=== PATIENT | female | born 1940 | race Caucasian/White ===

== ENCOUNTER 2016-06-17 15:37 | Emergency (ER) | payer MEDICAID ==
[~2016-06-17] VITALS: Ht 170.2 cm; Wt 68.0 kg
[~2016-06-17 15:37] MED LIST: ARMO60TA PO; B-650TAB PO; CALC250T PO; CYAN1000P IM; NIAC100T2 PO; OMEP20TA PO; PRIN10TA PO; VITA100036 PO
[2016-06-17 15:41] VITALS: BP 155/74; PULSE 86; RESP 24; TEMP 98.6; O2SAT 99
--- NOTE | 2016-06-17 15:51 | PD ---
Physical Exam Time Seen by Provider: 15:47 Narrative 75yo F c/o not being able to eat x 1 weeks. Trouble swallowing. RUQ abd pain. Can swallow fluid without regurgitation. Reports nausea w/o vomiting. Denies fever. VSS Seen in triage, awaiting bed placement. Data Data Last Documented VS Vital Signs Date Time Temp Pulse Resp B/P Pulse Ox O2 Delivery O2 Flow Rate FiO2 06/17/16 15:41 98.6 86 24 155/74 99 Room Air MDM Supervised Visit with MYRA: Alma Sepulveda Jun 17, 2016 15:51
== END 2016-06-17 17:57 | disposition left against medical advice (07) ==
LOC: NED 15:37
DX: R11.2 Nausea with vomiting, unspecified (principal); Z53.21 Procedure and treatment not carried out due to patient leaving prior to being seen by health care provider
CPT/HCPCS: 99283

== ENCOUNTER 2016-06-22 13:47 | Emergency (ER) | payer MEDICAID ==
[2016-06-22 13:53] VITALS: BP 204/89; PULSE 72; RESP 24; TEMP 98.3; O2SAT 100
--- NOTE | 2016-06-22 14:15 | PD ---
Physical Exam Time Seen by Provider: 14:09 Narrative 75 year old female presents to ED for evaluation of decreased appetite, bloating , and discomfort for almost two weeks. She was here last week, but left while waiting in triage for a medical bed. She states since yesterday she has been unable to eat without vomiting and the discomfort and pressure has "gotten worse between her esophagus and stomach." Pt has history of hiatal hernia. BM has been harder today. Mild burning with urination. Has been chilled without fever. Pt has history of HTN and gerd. Data Data Last Documented VS Vital Signs Date Time Temp Pulse Resp B/P Pulse Ox O2 Delivery O2 Flow Rate FiO2 06/22/16 13:53 98.3 72 24 204/89 100 MDM Medical Record Reviewed: Yes Supervised Visit with MYRA: No Narrative Course 75 year old presents to ED for evaluation. Appears without distress. She is hypertensive, but otherwise VSS. Condition: Stable Milly Rivera Jun 22, 2016 14:15
[2016-06-22] MEDS ORDERED: SODIUM CHLOR 0.9% 1000 ML INJ 1,000 ML IV SCH (15:24)
--- NOTE | 2016-06-22 15:27 | PD ---
HPI Chief Complaint: Abdominal Pain Time Seen by Provider: 15:27 Travel History International Travel<30 days: No Contact w/Intl Traveler<30days: No Traveled to known affect area: No History of Present Illness HPI 75-year-old female with a history of hypertension, hypothyroidism, hiatal hernia , GERD presents to the emergency department for evaluation of epigastric abdominal discomfort for 1.5 weeks. Patient states that she has distention and bloating in the epigastric region that has been constant for the past week. States that the symptoms are made worse with eating. Denies any alleviating factors. States that she is unable to eat because his symptoms have been worsening. She has mild nausea without vomiting. Describes the discomfort as pressure between her esophagus and her stomach, feels as though she has an obstruction. Denies fever, chills, chest pain, shortness of breath, diarrhea, constipation, dysuria. Denies any prior abdominal surgeries. States that she had a history of H pylori and esophageal strictures in the past. PCP in [place]. No other complaints. PFSH Past Medical History Cancer: No Cardiovascular Problems: Yes (htn; interior ischemia) Diabetes: No Diminished Hearing: No Diverticulitis: Yes Endocrine: Yes Genitourinary: No Hepatitis: No Hiatal Hernia: Yes Hypertension: Yes Musculoskeletal: Yes (ARTHRITIS) Neurologic: No Psychiatric: No Reproductive: No Respiratory: No Immunizations Current: No Thyroid Disease: Yes (HYPOTHYROID) Menopausal: Yes : 1 Para: 0 Miscarriage: 0 : 1 Tubal Ligation: Yes Past Surgical History Abdominal Surgery: Yes (LAPAROSCOPIC TUBAL LIGATION) Body Medical Devices: N/A Cardiac Surgery: No Ear Surgery: No Endocrine Surgery: No Eye Surgery: Yes (TEE CATARACT SX) Genitourinary Surgery: No Gynecologic Surgery: Yes (TUBAL LIGATION) Joint Replacement: No Oral Surgery: Yes (T&A AGE 10) Pacemaker: No Thoracic Surgery: Yes (LEFT BREAST BROWN SPOT REMOVED 12/13/13- BENIGN) Tonsillectomy: Yes Other Surgery: Yes (removsl cyst to both breast ;ENDO/COLONOSCOPY) Social History Alcohol Use: No Tobacco Use: No (Hx of smoking 20 years ago ) Substance Use: No Allergies-Medications (Allergen,Severity, Reaction): Coded Allergies: Pravastatin (Verified Allergy, Severe, SOB, 06/17/16) INTERMEDIATE REACTION Synthroid (Verified Allergy, Intermediate, hives, 06/17/16) Uncoded Allergies: LEVOXYL (Adverse Reaction, Intermediate, HAIR LOSS; ITCHING, 12/20/13) Reported Meds & Prescriptions Reported Meds & Active Scripts Active Reported Calcium Citrate 250 Mg Tab 250 Mg PO DAILY Vitamin D3 (Cholecalciferol) 1,000 Unit Cap 1,000 Units PO DAILY B-6 (Pyridoxine HCl) 50 Mg Tab 50 Mg PO DAILY Cyanocobalamin Inj (Cyanocobalamin) 1,000 Mcg/Ml Inj 1,000 Mcg IM Q30D Niacin 100 Mg Tab 100 Mg PO DAILY Omeprazole 20 Mg Tab 20 Mg PO DAILY Prinivil (Lisinopril) 10 Mg Tab 10 Mg PO DAILY [place] Thyroid (Thyroid) 60 Mg Tab 60 Mg PO DAILY Review of Systems Except as stated in HPI: all other systems reviewed are Neg Physical Exam Narrative GENERAL: Well-nourished and well-developed pleasant patient in no acute distress who is nontoxic appearing. SKIN: Warm and dry. HEAD: Normocephalic and atraumatic. EYES: No injection, drainage, or hyphema noted. PERRLA. EOMI. ENT: No nasal drainage noted. Oropharynx is clear. NECK: Supple and the trachea is midline. CARDIOVASCULAR: Regular rate and rhythm. RESPIRATORY: Breath sounds are equal bilaterally with no accessory muscle use, wheezing, rhonchi, or crackles. GASTROINTESTINAL: Tenderness to palpation of epigastric region. Negative Madrid sign. Negative McBurney's point. Abdomen is soft and nondistended. MUSCULOSKELETAL: No obvious deformities, swelling, cyanosis, or ecchymosis is present throughout the upper and lower extremities. Patient has full range of motion without any signs of neurovascular compromise. . NEUROLOGICAL: Awake, alert, and oriented. Normal speech and gait. Cranial nerves are grossly intact. Data Data Last Documented VS Vital Signs Date Time Temp Pulse Resp B/P Pulse Ox O2 Delivery O2 Flow Rate FiO2 06/22/16 18:04 59 18 155/71 97 Room Air 06/22/16 13:53 98.3 Orders Electrocardiogram (06/22/16 14:14) Complete Blood Count With Diff (06/22/16 15:24) Comprehensive Metabolic Panel (06/22/16 15:24) Lipase (06/22/16 15:24) Prothrombin Time / Inr (Pt) (06/22/16 15:24) Act Partial Throm Time (Ptt) (06/22/16 15:24) Ct Abd/Pel W Iv Contrast(Rout) (06/22/16 15:24) Iv Access Insert/Monitor (06/22/16 15:24) Ecg Monitoring (06/22/16 15:24) Oximetry (06/22/16 15:24) Ondansetron Inj (Zofran Inj) (06/22/16 15:30) Pantoprazole Inj (Protonix Inj) (06/22/16 15:30) Sodium Chlor 0.9% 1000 Ml Inj (Ns 1000 M (06/22/16 15:24) Sodium Chloride 0.9% Flush (Ns Flush) (06/22/16 15:30) Chest, Single Ap (06/22/16 15:24) Troponin I (06/22/16 15:24) Barium Swallow (06/22/16 ) Iohexol 350 Inj (Omnipaque 350 Inj) (06/22/16 17:15) Labs Laboratory Tests Test 06/22/16 15:33 White Blood Count 6.9 TH/MM3 Red Blood Count 3.97 MIL/MM3 Hemoglobin 12.1 GM/DL Hematocrit 36.0 % Mean Corpuscular Volume 90.6 FL Mean Corpuscular Hemoglobin 30.5 PG Mean Corpuscular Hemoglobin 33.7 % Concent Red Cell Distribution Width 13.3 % Platelet Count 234 TH/MM3 Mean Platelet Volume 8.1 FL Neutrophils (%) (Auto) 58.9 % Lymphocytes (%) (Auto) 31.7 % Monocytes (%) (Auto) 7.1 % Eosinophils (%) (Auto) 1.7 % Basophils (%) (Auto) 0.6 % Neutrophils # (Auto) 4.1 TH/MM3 Lymphocytes # (Auto) 2.2 TH/MM3 Monocytes # (Auto) 0.5 TH/MM3 Eosinophils # (Auto) 0.1 TH/MM3 Basophils # (Auto) 0.0 TH/MM3 CBC Comment DIFF FINAL Differential Comment Prothrombin Time 10.1 SEC Prothromb Time International 0.9 RATIO Ratio Activated Partial 24.9 SEC Thromboplast Time Sodium Level 141 MEQ/L Potassium Level 4.2 MEQ/L Chloride Level 107 MEQ/L Carbon Dioxide Level 27.2 MEQ/L Anion Gap 7 MEQ/L Blood Urea Nitrogen 21 MG/DL Creatinine 1.10 MG/DL Estimat Glomerular Filtration 49 ML/MIN Rate Random Glucose 82 MG/DL Calcium Level 9.3 MG/DL Total Bilirubin 0.5 MG/DL Aspartate Amino Transf 21 U/L (AST/SGOT) Alanine Aminotransferase 24 U/L (ALT/SGPT) Alkaline Phosphatase 82 U/L Troponin I LESS THAN 0.02 NG/ML Total Protein 7.6 GM/DL Albumin 4.0 GM/DL Lipase 197 U/L MDM Medical Decision Making Medical Screen Exam Complete: Yes Emergency Medical Condition: Yes Differential Diagnosis Gastritis versus GERD versus abrasion versus malignancy versus pancreatitis Narrative Course 75-year-old female presents to the emergency department for evaluation of epigastric abdominal discomfort and bloating with nausea. Patient is afebrile. She is noted to be hypertensive with a blood pressure of 204/89 initially. Otherwise vital signs within normal limits. She has epigastric tenderness to palpation on exam. IV access is obtained, labs been drawn and sent. Patient is placed on cardiac telemetry and pulse oximetry monitoring. CT of the abdomen and pelvis has been ordered and is pending. Patient is administered Zofran and Protonix with IV fluids. CBC is unremarkable. CMP shows slight elevation of creatinine of 1.1., BUN 21, GFR 49. Patient has been given a liter of fluid. Troponin is less than 0.02. Lipase is normal. Chest x-rays negative. CT abdomen and pelvis is negative. Barium swallow shows small left-sided pharyngocele but is otherwise negative. Patient has remained stable and without complaint while here in the emergency department. I discussed all findings with the patient. Labs and imaging are reassuring. The patient is instructed to follow-up with a balance clerk as an outpatient. Patient verbalizes understanding and agreement with treatment plan. I discussed the case with my attending physician Dr. Mcdonald who is aware of the patients history, physical examination findings, and treatment plan. Diagnosis Primary Impression: Epigastric abdominal pain Referrals: Therapy Site Coordinator Patient Instructions: Abdominal Pain (ED), General Instructions Additional Instructions: Take medications as prescribed. Follow-up with a balance clerk. Return to the ED for any acute worsening of symptoms. Med/Other Pt SpecificInfo: Prescription(s) given Scripts Ranitidine (Zantac)150 Mg Gvd544 Mg PO BID 7 Days Ref 0 Prov:Ibeth Mcdonald MD 06/22/16 Ondansetron (Zofran)4 Mg Tab4 Mg PO Q6HR PRN (NAUSEA OR VOMITING) #14 TAB Ref 0 Prov:Ibeth Mcdonald MD 06/22/16 Disposition: 01 DISCHARGE HOME Condition: Stable Alma Childress Jun 22, 2016 15:27
[2016-06-22] MEDS ORDERED: ONDANSETRON HCL 4 MG/2 ML VIAL IVP ONE (15:30)
[2016-06-22] MEDS ORDERED: PANTOPRAZOLE SODIUM 40 MG VIAL IVP ONE (15:30)
[2016-06-22] MEDS ORDERED: SODIUM CHLORIDE 0.9% FLUSH 10 ML FLUSH IV FLUSH PRN (15:30)
[2016-06-22 15:56] LABS: AUTOMATED NEUTROPHIL # 4.1 TH/MM3 (1.8-7.7); BASOPHIL % 0.6 % (0.0-2.0); EOSINOPHIL # 0.1 TH/MM3 (0-0.4); EOSINOPHIL % 1.7 % (0.0-4.0); HEMO FLAGS DIFF FINAL; LYMPH % 31.7 % (9.0-44.0); LYMPHOCYTE # 2.2 TH/MM3 (1.0-4.8); MEAN CELL VOLUME 90.6 FL (80.0-100.0); MEAN CORPUSCULAR HEMOGLOBIN 30.5 PG (27.0-34.0); MEAN CORPUSCULAR HGB CONC 33.7 % (32.0-36.0); MONO % 7.1 % (0.0-8.0); NEUT % 58.9 % (16.0-70.0); PLATELET COUNT 234 TH/MM3 (150-450); RED BLOOD COUNT 3.97 MIL/MM3 (4.00-5.30); RED CELL DISTRIBUTION WIDTH 13.3 % (11.6-17.2); WHITE BLOOD COUNT 6.9 TH/MM3 (4.0-11.0)
[2016-06-22 16:17] LABS: ALT (GPT) 24 U/L (10-53); ANION GAP 7 MEQ/L (5-15); AST (GOT) 21 U/L (15-37); BICARBONATE 27.2 MEQ/L (21.0-32.0); BLOOD UREA NITROGEN 21 MG/DL (7-18); CHLORIDE 107 MEQ/L (98-107); GLOMERULAR FILTRATION RATE 49 ML/MIN (>89); POTASSIUM 4.2 MEQ/L (3.5-5.1); SODIUM (NA) 141 MEQ/L (136-145)
[2016-06-22 16:19] LABS: ALKALINE PHOSPHATASE 82 U/L (45-117); TOTAL BILIRUBIN ADULT 0.5 MG/DL (0.2-1.0)
[2016-06-22 16:34] LABS: APTT (PATIENT) 24.9 SEC (24.3-30.1); INTERNATIONAL NORMALIZED RATIO 0.9 RATIO; PROTHROMBIN TIME - PATIENT 10.1 SEC (9.8-11.6)
--- NOTE | 2016-06-22 16:38 | RADRPT ---
EXAM DATE/TIME: 06/22/2016 15:34 [facility] COMPARISON: CHEST SINGLE AP, December 09, 2014, 21:19. INDICATIONS : Chest pain. MEDICAL HISTORY : hiatal hernia, anterior ischemia SURGICAL HISTORY : None. ENCOUNTER: Initial ACUITY: 1 day PAIN SCORE: Non-responsive. LOCATION: Bilateral chest FINDINGS: A single view of the chest demonstrates the lungs to be symmetrically aerated without evidence of mas s, infiltrate or effusion. The cardiomediastinal contours are unremarkable. Osseous structures are intact. No evidence of free intraperitoneal gas. CONCLUSION: The lungs are clear. Law Novak MD on June 22, 2016 at 16:36 Board Certified Radiologist. This report was verified electronically.
--- NOTE | 2016-06-22 16:40 | PD ---
Data Data Last Documented VS Vital Signs Date Time Temp Pulse Resp B/P Pulse Ox O2 Delivery O2 Flow Rate FiO2 06/22/16 13:53 98.3 72 24 204/89 100 Orders Electrocardiogram (06/22/16 14:14) Complete Blood Count With Diff (06/22/16 15:24) Comprehensive Metabolic Panel (06/22/16 15:24) Lipase (06/22/16 15:24) Prothrombin Time / Inr (Pt) (06/22/16 15:24) Act Partial Throm Time (Ptt) (06/22/16 15:24) Ct Abd/Pel W Iv Contrast(Rout) (06/22/16 15:24) Iv Access Insert/Monitor (06/22/16 15:24) Ecg Monitoring (06/22/16 15:24) Oximetry (06/22/16 15:24) Ondansetron Inj (Zofran Inj) (06/22/16 15:30) Pantoprazole Inj (Protonix Inj) (06/22/16 15:30) Sodium Chlor 0.9% 1000 Ml Inj (Ns 1000 M (06/22/16 15:24) Sodium Chloride 0.9% Flush (Ns Flush) (06/22/16 15:30) Chest, Single Ap (06/22/16 15:24) Troponin I (06/22/16 15:24) Labs Laboratory Tests Test 06/22/16 15:33 White Blood Count 6.9 TH/MM3 Red Blood Count 3.97 MIL/MM3 Hemoglobin 12.1 GM/DL Hematocrit 36.0 % Mean Corpuscular Volume 90.6 FL Mean Corpuscular Hemoglobin 30.5 PG Mean Corpuscular Hemoglobin 33.7 % Concent Red Cell Distribution Width 13.3 % Platelet Count 234 TH/MM3 Mean Platelet Volume 8.1 FL Neutrophils (%) (Auto) 58.9 % Lymphocytes (%) (Auto) 31.7 % Monocytes (%) (Auto) 7.1 % Eosinophils (%) (Auto) 1.7 % Basophils (%) (Auto) 0.6 % Neutrophils # (Auto) 4.1 TH/MM3 Lymphocytes # (Auto) 2.2 TH/MM3 Monocytes # (Auto) 0.5 TH/MM3 Eosinophils # (Auto) 0.1 TH/MM3 Basophils # (Auto) 0.0 TH/MM3 CBC Comment DIFF FINAL Differential Comment Prothrombin Time 10.1 SEC Prothromb Time International 0.9 RATIO Ratio Activated Partial 24.9 SEC Thromboplast Time Sodium Level 141 MEQ/L Potassium Level 4.2 MEQ/L Chloride Level 107 MEQ/L Carbon Dioxide Level 27.2 MEQ/L Anion Gap 7 MEQ/L Blood Urea Nitrogen 21 MG/DL Creatinine 1.10 MG/DL Estimat Glomerular Filtration 49 ML/MIN Rate Random Glucose 82 MG/DL Calcium Level 9.3 MG/DL Total Bilirubin 0.5 MG/DL Aspartate Amino Transf 21 U/L (AST/SGOT) Alanine Aminotransferase 24 U/L (ALT/SGPT) Alkaline Phosphatase 82 U/L Troponin I LESS THAN 0.02 NG/ML Total Protein 7.6 GM/DL Albumin 4.0 GM/DL Lipase 197 U/L [facility] Supervised Visit with MYRA: Yes Narrative Course The history, exam, and medical decision-making in the associated midlevel provider note were completed with my assistance. I reviewed and agree with the findings presented. I attest that I had a [id number] encounter with the patient on the same day, and personally performed and documented my assessment and findings in the medical record. *My assessment and Findings: This is a 75-year-old female who presents to the emergency department with epigastric bloating and discomfort is been going on for several days. She is a history of esophageal stricture in the past, as well as a sliding hiatal hernia. CT imaging will be obtained to rule out gastric outlet obstruction or hernia incarceration and barium swallow will be obtained to rule out esophageal stricture. Imaging will be followed up by physician resident assistant for disposition. Condition: Stable Ibeth Mcdonald MD Jun 22, 2016 16:40
[2016-06-22] MEDS ORDERED: IOHEXOL 350 MG/ML 10 ML VIAL (for RAD DIAG) IV ONE (17:15)
--- NOTE | 2016-06-22 17:36 | RADRPT ---
EXAM DATE/TIME: 06/22/2016 16:56 [facility] COMPARISON: CT ABDOMEN & PELVIS W CONTRAST, January 30, 2013, 16:16. INDICATIONS : Patient has difficulty eating & drinking with nausea . IV CONTRAST: 71 cc Omnipaque 350 (iohexol) IV ORAL CONTRAST: No oral contrast ingested. RADIATION DOSE: 7.9 CTDIvol (mGy) MEDICAL HISTORY : Diverticulitis. Hernia, hiatal. Hypertension. SURGICAL HISTORY : Tubal ligation. Breast biopsy. ENCOUNTER: Initial ACUITY: 1 day PAIN SCALE: 8/10 LOCATION: Bilateral proximal abdomen TECHNIQUE: Volumetric scanning of the abdomen and pelvis was performed. Using automated exposure control and ad justment of the mA and/or kV according to patient size, radiation dose was kept as low as reasonably achievable to obtain optimal diagnostic quality images. FINDINGS: LOWER LUNGS: The visualized lower lungs are clear. LIVER: Homogeneous density without lesion. There is no dilation of the biliary tree. No calcified gallston es. SPLEEN: Normal size without lesion. PANCREAS: Within normal limits. KIDNEYS: Normal in size and shape. There is no mass, stone or hydronephrosis. There are 2 cysts in the martin x of the left kidney measuring 1.6 cm. There is a cyst in the lower pole cortex of the right kidney measuring 1 cm. ADRENAL GLANDS: Within normal limits. VASCULAR: There is no aortic aneurysm. BOWEL/MESENTERY: The stomach, small bowel, and colon demonstrate no acute abnormality. There is no free intraperitone al air or fluid. ABDOMINAL WALL: Within normal limits. RETROPERITONEUM: There is no lymphadenopathy. BLADDER: No wall thickening or mass. REPRODUCTIVE: Calcified uterine fibroid in the anterior fundus similar to prior CT. INGUINAL: There is no lymphadenopathy or hernia. MUSCULOSKELETAL: Advanced degenerative changes of the posterior elements of the lumbar spine similar to prior. Mild r ight lumbar scoliosis. CONCLUSION: No acute findings. Law Novak MD on June 22, 2016 at 17:30 Board Certified Radiologist. This report was verified electronically.
--- NOTE | 2016-06-22 17:53 | RADRPT ---
EXAM DATE/TIME: 06/22/2016 17:13 [facility] COMPARISON: No previous studies available for comparison. INDICATIONS : Difficulty swallowing. FLUORO TIME: 1.7 minutes IMAGE COUNT: 13 CONTRAST: 1. E-Z HD Barium Sulfate (98% w/w) Liquid E-Z Paque Barium Sulfate (60% w/v, 41% w.w) MEDICAL HISTORY : None. SURGICAL HISTORY : None. ENCOUNTER: Initial ACUITY: 2 days PAIN SCORE: 3/10 LOCATION: Esophagus FINDINGS: The patient was observed during swallowing thin barium and thick barium. The patient initiates swall owing normally. There is a small pharyngocele on the left side which does empty. Mucosal pattern of the esophagus and the dimension of the esophagus is normal. No evidence of hiatus hernia. There is rapid passage of barium through the esophagus. The GE junction is normal in configuration. No evid ence of ulceration. The patient was placed in a prone position and no evidence of reflux or hiatus h ernia with direct manual compression over the epigastric region. CONCLUSION: Small left-sided pharyngocele. Otherwise negative barium swallow. Law Novak MD on June 22, 2016 at 17:50 Board Certified Radiologist. This report was verified electronically.
[2016-06-22 18:04] VITALS: BP 155/71; PULSE 59; RESP 18; O2SAT 97
[2016-06-22] MEDS ORDERED: ZOFR4TAB PO (18:10)
[2016-06-22] MEDS ORDERED: ZANT150T2 PO (18:10)
--- NOTE | 2016-06-22 23:33 | EKG ---
Date Performed: 06/22/2016 Time Performed: 14:21:29 PTAGE: 75 years EKG: Sinus rhythm NORMAL ECG PREVIOUS TRACING : 02/18/2016 11.13 Compared to prior tracing no significant change DOCTOR: Miguelangel Sampson Interpretating Date/Time 06/22/2016 23:33:16
== END 2016-06-22 18:53 | disposition home or self-care (01) ==
LOC: NEPD 13:47
DX: R10.13 Epigastric pain (principal); R11.0 Nausea; K44.9 Diaphragmatic hernia without obstruction or gangrene; I10 Essential (primary) hypertension; Z87.891 Personal history of nicotine dependence
CPT/HCPCS: 71010; 74177; 74230; 80053; 83690; 84484; 85025; 85610; 85730; 93005; 96374; 96375; 99284; C9113; J2405; J7030; Q9967

== ENCOUNTER 2016-12-14 13:47 | Emergency (ER) | payer MEDICAID ==
[~2016-12-14] VITALS: Ht 170.2 cm; Wt 67.4 kg
[~2016-12-14 13:47] MED LIST changes: +ZANT150T2 PO; +ZOFR4TAB PO
[2016-12-14 13:49] VITALS: BP 132/58; PULSE 85; RESP 16; TEMP 97.9; O2SAT 100
[2016-12-14] MEDS ORDERED: PRED20 PO (14:12)
[2016-12-14] MEDS ORDERED: [UNRECOGNIZED DRUG - CODE] TOPICAL (14:12)
--- NOTE | 2016-12-14 14:13 | PD ---
HPI . Bee sting to right forearm Chief Complaint: Skin Problem Time Seen by Provider: 14:02 Travel History International Travel<30 days: No Contact w/Intl Traveler<30days: No Traveled to known affect area: No History of Present Illness HPI 76-year-old female presents emergency department for evaluation of a bee sting to the right medial aspect of her forearm. She was stung by a bee yesterday when she was gardening. She went to the drugstore today to get Benadryl because her arm was very itchy where she was stung when the pharmacist referred her to the emergency department for evaluation. Patient's right medial forearm has erythema, mild edema and is warm. Neurovascularly the arm is intact. Patient has full range of motion. Patient denies any fevers, chills, malaise, chest pain, shortness breath, headache, abdominal pain, nausea, vomiting, diarrhea or lightheadedness. PFSH Past Medical History Asthma: Yes Cancer: No Cardiovascular Problems: Yes (htn; interior ischemia) COPD: Yes Diabetes: No Diminished Hearing: No Diverticulitis: Yes Endocrine: Yes Genitourinary: No Hepatitis: No Hiatal Hernia: Yes Hypertension: Yes Musculoskeletal: Yes (ARTHRITIS) Neurologic: No Psychiatric: No Reproductive: No Respiratory: No Immunizations Current: No Thyroid Disease: Yes (HYPOTHYROID) ?: Not Menopausal: Yes : 1 Para: 0 Miscarriage: 0 : 1 Tubal Ligation: Yes Past Surgical History Abdominal Surgery: Yes (LAPAROSCOPIC TUBAL LIGATION) Body Medical Devices: N/A Cardiac Surgery: No Ear Surgery: No Endocrine Surgery: No Eye Surgery: Yes (TEE CATARACT SX) Genitourinary Surgery: No Gynecologic Surgery: Yes (TUBAL LIGATION) Joint Replacement: No Oral Surgery: Yes (T&A AGE 10) Pacemaker: No Thoracic Surgery: Yes (LEFT BREAST BROWN SPOT REMOVED 12/13/13- BENIGN) Tonsillectomy: Yes Other Surgery: Yes (removsl cyst to both breast ;ENDO/COLONOSCOPY) Social History Alcohol Use: No Tobacco Use: No (Hx of smoking 20 years ago ) Substance Use: No Allergies-Medications (Allergen,Severity, Reaction): Coded Allergies: pravastatin (Unverified Allergy, Severe, SOB, 12/14/16) INTERMEDIATE REACTION levothyroxine (Unverified Allergy, Intermediate, hives, 12/14/16) levothyroxine sodium (Unverified Allergy, Intermediate, hives, 12/14/16) Uncoded Allergies: LEVOXYL (Adverse Reaction, Intermediate, HAIR LOSS; ITCHING, 12/20/13) Reported Meds & Prescriptions Reported Meds & Active Scripts Active Vanos (Fluocinonide) 0.1 % Cream..g. 1 Applic TOPICAL Q4HR PRN Prednisone 20 Mg Tab 40 Mg PO DAILY 3 Days Take 40 mg (2 tablets) daily for 5 days Reported Calcium Citrate 250 Mg Tab 250 Mg PO DAILY Vitamin D3 (Cholecalciferol) 1,000 Unit Cap 1,000 Units PO DAILY B-6 (Pyridoxine HCl) 50 Mg Tab 50 Mg PO DAILY Cyanocobalamin Inj (Cyanocobalamin) 1,000 Mcg/Ml Inj 1,000 Mcg IM Q30D Niacin 100 Mg Tab 100 Mg PO DAILY Prinivil (Lisinopril) 10 Mg Tab 5 Mg PO DAILY Gantt Thyroid (Thyroid) 60 Mg Tab 45 Mg PO DAILY Review of Systems Except as stated in HPI: all other systems reviewed are Neg Physical Exam Narrative GENERAL: Well-nourished, well-developed 76-year-old female patient in no acute distress. Nontoxic appearing. SKIN: Mild erythema and edema noted to medial dorsal aspect of right forearm. HEAD: Normocephalic. Atraumatic. EYES: No scleral icterus. No injection or drainage. NECK: Supple, trachea midline. No JVD or lymphadenopathy. CARDIOVASCULAR: Regular rate and rhythm without murmurs, gallops, or rubs. RESPIRATORY: Breath sounds equal bilaterally. No accessory muscle use. GASTROINTESTINAL: Abdomen soft, non-tender, nondistended. MUSCULOSKELETAL: No cyanosis, or edema. BACK: Nontender without obvious deformity. No CVA tenderness. Data Data Last Documented VS Vital Signs Date Time Temp Pulse Resp B/P (MAP) Pulse Ox O2 Delivery O2 Flow Rate FiO2 12/14/16 13:49 97.9 85 16 132/58 (82) 100 Orders Orders Ice/Cold Pack (12/14/16 14:09) MDM Medical Decision Making Medical Screen Exam Complete: Yes Emergency Medical Condition: Yes Differential Diagnosis Differential diagnoses include but not limited to cellulitis, bee sting, insect bite, localized reaction Narrative Course 76-year-old female patient presents emergency department after she was stung by a bee on her right forearm yesterday when gardening. Patient has a localized reaction of erythema, mild edema and itchiness. There is no signs or symptoms of a systemic infection. Based on patient's symptoms, clinical presentation, vital sign review and physical exam it is not necessary to admit the patient to the hospital or keep the patient in the emergency department for further evaluation. Ice will be applied to the right forearm and patient will be given a short dose oral steroid prescription and a topical steroid cream and discharged home. Diagnosis Primary Impression: Bee sting Qualified Codes: T63.444A - Toxic effect of venom of bees, undetermined, initial encounter Referrals: Primary Care Physician Patient Instructions: General Instructions, Insect Bite or Sting (ED) Additional Instructions: Please return to emergency department if your symptoms return or worsen. Follow up with your primary care provider. Take medications as prescribed. Med/Other Pt SpecificInfo: Prescription(s) given Scripts Fluocinonide (Vanos) 0.1 % Cream..g. 1 APPLIC TOPICAL Q4HR Y for ITCHING, #1 BOTTLE Prov: Arabella Clayton 12/14/16 Prednisone (Prednisone) 20 Mg Tab 40 MG PO DAILY for 3 Days, #6 TAB 0 Refills Take 40 mg (2 tablets) daily for 5 days Prov: Arabella Clayton 12/14/16 Disposition: 01 DISCHARGE HOME Condition: Stable Arabella Clayton Dec 14, 2016 14:13
== END 2016-12-14 14:23 | disposition home or self-care (01) ==
LOC: PHEFT 13:47
DX: T63.444A Toxic effect of venom of bees, undetermined, initial encounter (principal); W57.XXXA Bitten or stung by nonvenomous insect and other nonvenomous arthropods, initial encounter; J44.9 Chronic obstructive pulmonary disease, unspecified; J45.909 Unspecified asthma, uncomplicated; I10 Essential (primary) hypertension; E03.9 Hypothyroidism, unspecified
CPT/HCPCS: 99284

== ENCOUNTER 2017-03-13 07:25 | Emergency (ER) | payer MEDICAID ==
[~2017-03-13] VITALS: Ht 170.2 cm; Wt 66.0 kg
[~2017-03-13 07:25] MED LIST changes: +CHOL10008 PO; -OMEP20TA PO; +PRED20 PO; -VITA100036 PO; -ZANT150T2 PO; -ZOFR4TAB PO; +[UNRECOGNIZED DRUG - CODE] TOPICAL
[2017-03-13 07:26] VITALS: BP 147/98; PULSE 89; RESP 16; TEMP 100; O2SAT 98
[2017-03-13 07:41] VITALS: PULSE 95; RESP 18; TEMP 98.8; O2SAT 98
--- NOTE | 2017-03-13 07:56 | PD ---
HPI Chief Complaint: ENT Complaint Time Seen by Provider: 07:50 Travel History International Travel<30 days: No Contact w/Intl Traveler<30days: No Traveled to known affect area: No History of Present Illness HPI 76-year-old female presents to emergency Department with complaint of sore throat, nasal congestion, bilateral ear pain, fever since yesterday. Reports occasional cough. MAXIMUM TEMPERATURE of 101.4 at home. Fever 100.0 in the ER. Denies chest pain, shortness of breath, wheezing, abdominal pain, vomiting. Denies limp and throat, difficulty swallowing, unusual drooling. Her father is sick with similar symptoms. Has been taking ibuprofen for symptom management. Symptoms are mild in severity. No known relieving or aggravating factors. Dr. Carrillo is primary care provider. Allergies to level thyroxine, pravastatin. History of hypertension and hypothyroid. Has no other medical complaints. No other modifying factors or associated signs and symptoms. PFSH Past Medical History Asthma: No Cancer: No Cardiovascular Problems: Yes (htn; interior ischemia) COPD: No Diabetes: No Diminished Hearing: No Diverticulitis: Yes Endocrine: Yes Gastrointestinal Disorders: No Genitourinary: No Hepatitis: No Hiatal Hernia: Yes Hypertension: Yes Medical other: No Musculoskeletal: Yes (ARTHRITIS) Neurologic: No Psychiatric: No Reproductive: No Respiratory: No Immunizations Current: No Thyroid Disease: Yes (HYPOTHYROID) Menopausal: Yes : 1 Para: 0 Miscarriage: 0 : 1 Tubal Ligation: Yes Past Surgical History Abdominal Surgery: Yes (HERNIA REPAIR AND REFLUX LAPROSCOPIC 10/21) Body Medical Devices: N/A Cardiac Surgery: No Ear Surgery: No Endocrine Surgery: No Eye Surgery: Yes (TEE CATARACT SX) Genitourinary Surgery: No Gynecologic Surgery: Yes (TUBAL LIGATION) Joint Replacement: No Neurologic Surgery: No Oral Surgery: Yes (T&A AGE 10) Pacemaker: No Thoracic Surgery: Yes (LEFT BREAST BROWN SPOT REMOVED 12/13/13- BENIGN) Tonsillectomy: Yes Other Surgery: Yes (removsl cyst to both breast ;ENDO/COLONOSCOPY) Social History Alcohol Use: No Tobacco Use: No ( ) Substance Use: No Allergies-Medications (Allergen,Severity, Reaction): Coded Allergies: pravastatin (Unverified Allergy, Severe, SOB, 12/14/16) INTERMEDIATE REACTION levothyroxine (Unverified Allergy, Intermediate, hives, 12/14/16) levothyroxine sodium (Unverified Allergy, Intermediate, hives, 12/14/16) Uncoded Allergies: LEVOXYL (Adverse Reaction, Intermediate, HAIR LOSS; ITCHING, 12/20/13) Reported Meds & Prescriptions Reported Meds & Active Scripts Active Magic Mouthwash Pediatric/Adult Liq (Lidocaine/Diphenhydr/Alum/Mg/Simeth) 60 Ml Susp 5 Ml SWISH-SPIT ACHS PRN Each 5mL contains: Diphenydramine 4.5mg, Viscous Lidocaine 2% 10mg, Maalox Advanced Regular Strength 2.7ml Nasonex Nasal [place]rill (Mometasone Furoate) 50 Mcg/Act Naspr 2 Sherrill EACH NARE DAILY PRN Reported Calcium Citrate 250 Mg Tab 250 Mg PO DAILY Vitamin D3 (Cholecalciferol) 1,000 Unit Cap 1,000 Units PO DAILY Cyanocobalamin Inj (Cyanocobalamin) 1,000 Mcg/Ml Inj 1,000 Mcg IM Q30D Prinivil (Lisinopril) 10 Mg Tab 5 Mg PO DAILY [place] Thyroid (Thyroid) 60 Mg Tab 45 Mg PO DAILY Review of Systems Except as stated in HPI: all other systems reviewed are Neg Physical Exam Narrative GENERAL: Well-nourished, well-developed female patient, in no acute distress; low-grade fever 100.0, nontoxic-appearing SKIN: Warm and dry. No rash. HEAD: Atraumatic. Normocephalic. EYES: Pupils equal and round. No scleral icterus. No injection or drainage. ENT: Mucosa pink and moist. No erythema or exudates. No uvular edema. No uvular , palatal, or tonsillar deviation. Airway patent. EARS: Bilateral pinnae and external canals appear within normal limits. Bilateral tympanic membranes without erythema, dullness or perforation. NECK: Trachea midline. No lymphadenopathy. CARDIOVASCULAR: Regular rate and rhythm. No murmur appreciated. RESPIRATORY: No accessory muscle use. Clear to auscultation. Breath sounds equal bilaterally. No retractions or tachypnea. GASTROINTESTINAL: Abdomen soft, non-tender, nondistended. Hepatic and splenic margins not palpable. Bowel sounds are active 4 quadrants. MUSCULOSKELETAL: No obvious deformities. No clubbing. No cyanosis. No edema. NEUROLOGICAL: Awake and alert. Oriented 3. No obvious cranial nerve deficits. Motor grossly within normal limits. Normal speech. Moves all extremities. 5/5 strength to all extremities. PSYCHIATRIC: Appropriate mood and affect; insight and judgment normal. Data Data Last Documented VS Vital Signs Date Time Temp Pulse Resp B/P (MAP) Pulse Ox O2 Delivery O2 Flow Rate FiO2 03/13/17 07:42 92 18 03/13/17 07:41 98.8 98 Room Air Orders Orders Influenzae A/B Antigen (03/13/17 07:55) Ibuprofen (Motrin) (03/13/17 08:00) Group A Rapid Strep Screen (03/13/17 07:55) Strep Culture (Group A) (03/13/17 08:05) Ed Discharge Order (03/13/17 08:37) [facility] Medical Decision Making Medical Screen Exam Complete: Yes Emergency Medical Condition: Yes Medical Record Reviewed: Yes Differential Diagnosis Influenza, strep pharyngitis, viral illness, upper respiratory infection Narrative Course 76-year-old female with cold/flu symptoms since yesterday. MAXIMUM TEMPERATURE of 101.4 at home. Low-grade fever of 100.0 in the ER. Nontoxic-appearing. Planing of sore throat also. Rapid strep, influenza, ibuprofen ordered. 0835: Influenza and rapid strep negative. Discussed viral illness and symptom management. Nasonex nasal spray and Magic mouthwash prescribed for home. 0840: The patient is requesting a prescription for antibiotics. Amoxicillin prescribed for home. Instructed patient to follow up with primary care provider. Patient verbalizes understanding and agreement with treatment plan. Patient is medically cleared and stable for discharge. Discussed reasons to return to the emergency department. Patient agrees with treatment plan. The patients vital signs are stable and the patient is stable for outpatient follow- up and treatment. Patient discharged home, stable and in no acute distress. Diagnosis Primary Impression: Viral illness Referrals: Primary Care Physician Patient Instructions: Cold Symptoms (ED), General Instructions, Safe Use of Cough and Cold Medicines (ED) Additional Instructions: Ibuprofen or Tylenol as directed and as needed to reduce fever; may alternate ibuprofen and Tylenol as needed every 3 hours to minimize fever [id number] cold/flu medications as directed and as needed for symptom management Get plenty of sleep/rest Drink plenty of fluids to prevent dehydration; such as Gatorade, Powerade, Pedialyte Otoe diet to encourage nutrition such as crackers, fruit, applesauce, toast, soup etc. Use an air humidifier/turn off ceiling fans Follow-up with your primary care provider within 1 day Return immediately to the emergency department with worsening of symptoms Med/Other Pt SpecificInfo: Prescription(s) given Scripts Amoxicillin (Amoxicillin) 500 Mg Cap 500 MG PO BID for Infection for 10 Days, #20 CAP 0 Refills Prov: Alma Mann 03/13/17 Psbuhetiutogltf-Gvbjypyxm-Szb-Alum-Simeth Liq (Magic Mouthwash Pediatric/Adult Liq) 60 Ml Susp 5 ML SWISH-SPIT ACHS Y for SORE THROAT, #60 ML 0 Refills Each 5mL contains: Diphenydramine 4.5mg, Viscous Lidocaine 2% 10mg, Maalox Advanced Regular Strength 2.7ml Prov: Alma Mann 03/13/17 Mometasone Nasal Sherrill (Nasonex Nasal Sherrill) 50 Mcg/Act Naspr 2 SPRAY EACH NARE DAILY Y for NASAL CONGESTION, #1 BOTTLE 0 Refills Prov: Alma Mann 03/13/17 Disposition: 01 DISCHARGE HOME Condition: Stable Alma Mann Mar 13, 2017 07:56
[2017-03-13] MEDS ORDERED: IBUPROFEN 600 MG TAB PO ONE (08:00)
[2017-03-13] MEDS ORDERED: MOME17I EACH NARE (08:14)
[2017-03-13] MEDS ORDERED: MAGICPED SWISH-SPIT (08:14)
[2017-03-13] MEDS ORDERED: AMOX500C PO (08:41)
== END 2017-03-13 09:00 | disposition home or self-care (01) ==
LOC: NEPD 07:25
DX: B34.9 Viral infection, unspecified (principal); I10 Essential (primary) hypertension; E03.9 Hypothyroidism, unspecified; M19.90 Unspecified osteoarthritis, unspecified site; Z79.899 Other long term (current) drug therapy; Z88.8 Allergy status to other drugs, medicaments and biological substances
CPT/HCPCS: 87081; 87804; 87880; 99284

== ENCOUNTER 2017-07-22 17:26 | Emergency (ER) | END 2017-07-22 18:42 | disposition home or self-care (01) | DX: S80.01XA Contusion of right knee, initial encounter (principal); I10 Essential (primary) hypertension; E03.9 Hypothyroidism, unspecified; Z86.79 Personal history of other diseases of the circulatory system; Z87.39 Personal history of other diseases of the musculoskeletal system and connective tissue; W19.XXXA Unspecified fall, initial encounter ==

== ENCOUNTER 2017-07-27 10:04 | Emergency (ER) | payer MEDICAID ==
[~2017-07-27] VITALS: Ht 170.2 cm; Wt 65.0 kg
[~2017-07-27 10:04] MED LIST changes: -B-650TAB PO; -CALC250T PO; +DICL50TA3 PO; -NIAC100T2 PO; -PRED20 PO; -[UNRECOGNIZED DRUG - CODE] TOPICAL
[2017-07-27 10:16] VITALS: BP 151/70; PULSE 65; RESP 16; TEMP 97.8; O2SAT 99
[2017-07-27 10:30] VITALS: BP 143/82; PULSE 71; RESP 19; O2SAT 100
[2017-07-27] MEDS ORDERED: SODIUM CHLOR 0.9% 1000 ML INJ 1,000 ML IV ONE (11:09)
--- NOTE | 2017-07-27 11:13 | PD ---
HPI Chief Complaint: Facial Pain or Swelling Time Seen by Provider: 11:00 Travel History International Travel<30 days: No Contact w/Intl Traveler<30days: No Traveled to known affect area: No History of Present Illness HPI This is a 76-year-old female who presents for evaluation. She reports over the past 2-3 weeks she has had some intermittent paresthesias in the right arm and hand and right second and third fingers. She reports that for the past few weeks she has had intermittent palpitations and heart rate that goes in the 170s -180s when she eats. She reports that this is measured with a smart watch that she wears on her wrist. She reports that today she woke up with some swelling to the right side of her lips as well as some perioral paresthesias and this is what prompted evaluation. She denies any current headache, blurred vision, chest pain, shortness of breath, current dizziness or lightheadedness or shortness of breath, nausea vomiting, abdominal pain. Denies any weakness or neck pain. Denies any new medications, creams, lotions, new medications. She does not recall any bug bites to her face. She reports a history of hypothyroidism as well as hypertension for which she has been on lisinopril for the past 3 years. She has no other complaints at this time. [facility] Past Medical History Asthma: No Cancer: No Cardiovascular Problems: Yes (HTN) COPD: No Diabetes: No Diminished Hearing: No Diverticulitis: Yes Endocrine: Yes Gastrointestinal Disorders: No Genitourinary: No Hepatitis: No Hiatal Hernia: Yes Hypertension: Yes Musculoskeletal: Yes (ARTHRITIS) Neurologic: No Psychiatric: No Reproductive: No Respiratory: No Immunizations Current: No Thyroid Disease: Yes (HYPOTHYROID) ?: Not Menopausal: Yes : 1 Para: 0 Miscarriage: 0 : 1 Tubal Ligation: Yes Past Surgical History Abdominal Surgery: Yes (HERNIA REPAIR AND REFLUX LAPROSCOPIC 10/21) Body Medical Devices: N/A Cardiac Surgery: No Ear Surgery: No Endocrine Surgery: No Eye Surgery: Yes (TEE CATARACT SX) Genitourinary Surgery: No Gynecologic Surgery: Yes (TUBAL LIGATION) Joint Replacement: No Neurologic Surgery: No Oral Surgery: Yes (T&A AGE 10) Pacemaker: No Thoracic Surgery: Yes (LEFT BREAST BROWN SPOT REMOVED 12/13/13- BENIGN) Tonsillectomy: Yes Other Surgery: Yes (removsl cyst to both breast ;ENDO/COLONOSCOPY) Social History Alcohol Use: No Tobacco Use: No ( ) Substance Use: No Allergies-Medications (Allergen,Severity, Reaction): Coded Allergies: pravastatin (Verified Allergy, Severe, SOB, 07/27/17) INTERMEDIATE REACTION levothyroxine (Verified Allergy, Intermediate, hives, 07/27/17) levothyroxine sodium (Verified Allergy, Intermediate, hives, 07/27/17) diphenhydramine (Verified Adverse Reaction, Severe, 07/27/17) ANXIETY AND BECOMES IRRATIONAL Uncoded Allergies: LEVOXYL (Adverse Reaction, Intermediate, HAIR LOSS; ITCHING, 12/20/13) Reported Meds & Prescriptions Reported Meds & Active Scripts Active Prednisone 20 Mg Tab 20 Mg PO BID [address] (Diclofenac Sodium) 50 Mg Tabdr 50 Mg PO TID Reported Vitamin D3 (Cholecalciferol) 1,000 Unit Cap 1,000 Units PO DAILY Cyanocobalamin Inj (Cyanocobalamin) 1,000 Mcg/Ml Inj 1,000 Mcg IM Q30D Prinivil (Lisinopril) 10 Mg Tab 5 Mg PO DAILY [place] Thyroid (Thyroid) 60 Mg Tab 45 Mg PO DAILY Review of Systems Except as stated in HPI: all other systems reviewed are Neg Physical Exam Narrative GENERAL: Well-developed well-nourished female no acute distress SKIN: Warm and dry. HEAD: Atraumatic. Normocephalic. EYES: Pupils equal and round. No scleral icterus. No injection or drainage. ENT: No nasal bleeding or discharge. Mucous membranes pink and moist. Mild edema noted to the right upper and lower lip. There is no swelling of the tongue, uvula. There is no stridor or drooling. There is no sublingual edema or submandibular edema. NECK: Trachea midline. No JVD. No lymphadenopathy. CARDIOVASCULAR: Regular rate and rhythm. No murmur appreciated. RESPIRATORY: No accessory muscle use. Clear to auscultation. Breath sounds equal bilaterally. GASTROINTESTINAL: Abdomen soft, non-tender, nondistended. Hepatic and splenic margins not palpable. MUSCULOSKELETAL: No obvious deformities. No clubbing. No cyanosis. No edema. NEUROLOGICAL: Awake and alert. No obvious cranial nerve deficits. Motor grossly within normal limits. Normal speech. Full muscle strength in the upper extremities. Data Data Last Documented VS Vital Signs Date Time Temp Pulse Resp B/P (MAP) Pulse Ox O2 Delivery O2 Flow Rate FiO2 07/27/17 10:30 71 19 143/82 (102) 100 Room Air 07/27/17 10:16 97.8 Orders Orders Electrocardiogram (07/27/17 11:09) Basic Metabolic Panel (Bmp) (07/27/17 11:09) Complete Blood Count With Diff (07/27/17 11:09) Magnesium (Mg) (07/27/17 11:09) Ckmb (Isoenzyme) Profile (07/27/17 11:09) Troponin I (07/27/17 11:09) Chest, Single Ap (07/27/17 11:09) Ct Brain W/O Iv Contrast(Rout) (07/27/17 11:09) Blood Glucose (07/27/17 11:09) Ecg Monitoring (07/27/17 11:09) Iv Access Insert/Monitor (07/27/17 11:09) Oximetry (07/27/17 11:09) Sodium Chloride 0.9% Flush (Ns Flush) (07/27/17 11:15) Sodium Chlor 0.9% 1000 Ml Inj (Ns 1000 M (07/27/17 11:09) Diphenhydramine Inj (Benadryl Inj) (07/27/17 11:15) Methylprednisolone So Succ Inj (Solumedr (07/27/17 11:15) Famotidine Inj (Pepcid Inj) (07/27/17 11:15) Thyroid Stimulating Hormone (07/27/17 11:10) Lorazepam Inj (Ativan Inj) (07/27/17 12:45) Ed Discharge Order (07/27/17 14:02) Labs Laboratory Tests Test 07/27/17 11:10 White Blood Count 5.4 TH/MM3 Red Blood Count 4.00 MIL/MM3 Hemoglobin 12.2 GM/DL Hematocrit 37.1 % Mean Corpuscular Volume 92.8 FL Mean Corpuscular Hemoglobin 30.4 PG Mean Corpuscular Hemoglobin Concent 32.8 % Red Cell Distribution Width 12.8 % Platelet Count 269 TH/MM3 Mean Platelet Volume 7.3 FL Neutrophils (%) (Auto) 60.1 % Lymphocytes (%) (Auto) 28.6 % Monocytes (%) (Auto) 7.6 % Eosinophils (%) (Auto) 3.1 % Basophils (%) (Auto) 0.6 % Neutrophils # (Auto) 3.2 TH/MM3 Lymphocytes # (Auto) 1.5 TH/MM3 Monocytes # (Auto) 0.4 TH/MM3 Eosinophils # (Auto) 0.2 TH/MM3 Basophils # (Auto) 0.0 TH/MM3 CBC Comment DIFF FINAL Differential Comment Blood Urea Nitrogen 31 MG/DL Creatinine 1.09 MG/DL Random Glucose 93 MG/DL Calcium Level 9.0 MG/DL Magnesium Level 2.3 MG/DL Sodium Level 142 MEQ/L Potassium Level 4.6 MEQ/L Chloride Level 108 MEQ/L Carbon Dioxide Level 25.6 MEQ/L Anion Gap 8 MEQ/L Estimat Glomerular Filtration Rate 49 ML/MIN Total Creatine Kinase 89 U/L Troponin I LESS THAN 0.02 NG/ML Thyroid Stimulating Hormone 3rd Gen 1.230 uIU/ML MDM Medical Decision Making Medical Screen Exam Complete: Yes Emergency Medical Condition: Yes Medical Record Reviewed: Yes Differential Diagnosis Allergic reaction, SARAH inhibitor induced angioedema, hypocalcemia, hypokalemia, TIA, iatrogenic thyrotoxicosis, SVT, PVC, atrial fibrillation Narrative Course The patient was placed on ECG monitoring pulse oximetry. A 12 EKG was obtained revealing sinus rhythm with a rate of 79. Lab work, chest x-ray, CT the brain of been ordered. The patient was given IV fluids, Benadryl, Solu-Medrol, Pepcid for treatment of her angioedema. She reports dry mouth and hypertension , anxiety has symptoms secondary to the Benadryl administration. Therefore the Benadryl was discontinued after 20 mg. Chest x-ray CONCLUSION: No acute cardiopulmonary process. CBC is unremarkable. BMP reveals a GFR 49 otherwise unremarkable. Cardiac enzymes within normal limits. TSH 1.230. CT the brain is normal. Upon examination the patient feels improved, her right-sided lip swelling is improved. At this point in time the plan is to have the patient discontinue her lisinopril and follow-up with her primary care physician for an alternative. Discussed following up with her primary care physician to obtain outpatient Holter monitoring. She will be discharged with prednisone. Discussed signs and symptoms that would warrant returning to the emergency room. Diagnosis Primary Impression: Angioedema Additional Impressions: Paresthesias Intermittent palpitations Additional Instructions: Quit taking the lisinopril. Take prednisone as prescribed. Follow-up with primary care physician Return for any acutely new or worsening symptoms. Med/Other Pt SpecificInfo: Prescription(s) given Scripts Prednisone (Prednisone) 20 Mg Tab 20 MG PO BID for 5 Days, #10 TAB 0 Refills Prov: David Collier MD 07/27/17 Disposition: 01 DISCHARGE HOME Condition: Stable Dylan Santiago July 27, 2017 11:13
[2017-07-27] MEDS ORDERED: FAMOTIDINE 20 MG/2 ML VIAL IV PUSH ONE (11:15)
[2017-07-27] MEDS ORDERED: SODIUM CHLORIDE 0.9% FLUSH 10 ML FLUSH IVF PRN (11:15)
[2017-07-27] MEDS ORDERED: diphenhydrAMINE HCL 50 MG/ML VIAL IVP ONE (11:15)
[2017-07-27] MEDS ORDERED: methylPREDNISolone SOD SUCC 125 MG/2 ML VIAL IV PUSH ONE (11:15)
[2017-07-27 11:35] LABS: AUTOMATED NEUTROPHIL # 3.2 TH/MM3 (1.8-7.7); BASOPHIL % 0.6 % (0.0-2.0); EOSINOPHIL # 0.2 TH/MM3 (0-0.4); EOSINOPHIL % 3.1 % (0.0-4.0); HEMATOCRIT 37.1 % (35.0-46.0); HEMOGLOBIN 12.2 GM/DL (11.6-15.3); LYMPH % 28.6 % (9.0-44.0); LYMPHOCYTE # 1.5 TH/MM3 (1.0-4.8); MEAN CELL VOLUME 92.8 FL (80.0-100.0); MEAN CORPUSCULAR HEMOGLOBIN 30.4 PG (27.0-34.0); MEAN CORPUSCULAR HGB CONC 32.8 % (32.0-36.0); MEAN PLATELET VOLUME 7.3 FL (7.0-11.0); MONO % 7.6 % (0.0-8.0); MONOCYTE # 0.4 TH/MM3 (0-0.9); NEUT % 60.1 % (16.0-70.0); PLATELET COUNT 269 TH/MM3 (150-450); RED CELL DISTRIBUTION WIDTH 12.8 % (11.6-17.2); WHITE BLOOD COUNT 5.4 TH/MM3 (4.0-11.0)
--- NOTE | 2017-07-27 11:36 | RADRPT ---
EXAM DATE: 07/27/2017 11:20 AM EDT AGE/SEX: 76 years / Female INDICATIONS: Heart palpitations. CLINICAL DATA: This is the patient's initial encounter. Patient reports that signs and symptoms have been present for 1 day and indicates a pain score of 0/10. MEDICAL/SURGICAL HISTORY: . ischemia. . Hiatal hernia. [place] [facility] [place]. . FINDINGS: A single AP view of the chest demonstrates the lungs to be symmetrically aerated without evidence of mass, infiltrate or effusion. The cardiomediastinal contours are unremarkable. Osseous structures a re intact. CONCLUSION: No acute cardiopulmonary process. Electronically signed by: Chris Hopson MD 07/27/2017 11:35 AM EDT
[2017-07-27 12:21] LABS: BICARBONATE 25.6 MEQ/L (21.0-32.0); BLOOD UREA NITROGEN 31 MG/DL (7-18); CHLORIDE 108 MEQ/L (98-107); CREATININE 1.09 MG/DL (0.50-1.00); GLOMERULAR FILTRATION RATE 49 ML/MIN (>89); GLUCOSE,RANDOM 93 MG/DL (74-106); MAGNESIUM 2.3 MG/DL (1.5-2.5); SODIUM (NA) 142 MEQ/L (136-145); TROPONIN I LESS THAN 0.02 NG/ML (0.02-0.05)
[2017-07-27] MEDS ORDERED: LORazepam 2 MG/ML VIAL IV PUSH ONE (12:45)
--- NOTE | 2017-07-27 13:37 | RADRPT ---
EXAM DATE: 07/27/2017 1:27 PM EDT AGE/SEX: 76 years / Female INDICATIONS: Dizziness. CLINICAL DATA: This is the patient's initial encounter. Patient reports that signs and symptoms have been present for 1 day and indicates a pain score of 0/10. MEDICAL/SURGICAL HISTORY: Hypertension. Tubal ligation. RADIATION DOSE: 56.35 CTDI (mGy) [place] [facility] [place] [facility] [place]. . TECHNIQUE: CT of the head without contrast. Using automated exposure control and adjustment of the mA and/or kV according to patient size, radiation dose was kept as low as reasonably achievable to ob tain optimal diagnostic quality images. FINDINGS: Cerebrum: The ventricles are normal for age. There is decreased density in the periventricular whit e matter. Calcifications are seen in the medial basal ganglia regions being more prominent on the lef t.. No evidence of midline shift, mass lesion, hemorrhage or acute infarction. No extraaxial fluid c ollections are seen. Posterior Fossa: The cerebellum and brainstem are intact. The 4th ventricle is midline. The cerebe llopontine angle is unremarkable. Extracranial: The visualized portion of the orbits is intact. Skull: The calvaria is intact. No evidence of skull fracture. CONCLUSION: 1. No acute abnormality is seen. 2. Suspected small vessel ischemic change throughout the white matter. Electronically signed by: Chris Hopson MD 07/27/2017 1:36 PM EDT
[2017-07-27] MEDS ORDERED: PRED20 PO (14:01)
[2017-07-27 15:08] VITALS: BP 147/72
[2017-07-27 15:11] VITALS: BP_SYST 71
--- NOTE | 2017-07-29 08:31 | EKG ---
Date Performed: 07/27/2017 Time Performed: 12:24:56 PTAGE: 76 years EKG: Sinus rhythm NORMAL ECG INTERPRETATION BASED ON A DEFAULT AGE OF 40 YEARS NO PREVIOUS TRACING DOCTOR: Rain Greco Interpretating Date/Time 07/29/2017 08:19:46
== END 2017-07-27 15:12 | disposition home or self-care (01) ==
LOC: NEPC 10:04
DX: T78.3XXA Angioneurotic edema, initial encounter (principal); R20.2 Paresthesia of skin; R00.2 Palpitations; E03.9 Hypothyroidism, unspecified; I10 Essential (primary) hypertension; Z79.899 Other long term (current) drug therapy
CPT/HCPCS: 70450; 71045; 80048; 82550; 83735; 84443; 84484; 85025; 93005; 96374; 96375; 99285; J1200; J2930; J7030